=== PATIENT | male | born 1940 | race Caucasian/White ===

== ENCOUNTER 2019-12-29 10:25 | Observation (INO) | payer BC ==
[2019-12-29] MEDS ORDERED: NITROGLYCERIN 0.4 MG 25 EA TAB SL PRN ×2 (10:29→14:18)
[2019-12-29] MEDS ORDERED: ASPIRIN TABLET 325 MG TAB PO ONE (10:29)
--- NOTE | 2019-12-29 10:35 | ED.PDOC ---
History of Present Illness - General Time Seen by Provider: 12/29/19 10:28 Source: patient, Vital Signs reviewed Additional Information: l this is a patient with Hx of sever arthritis that was sent here from clinic due to abnormal ekg patient had inverted t waves in leads III and AVF no chest pain. [patient family stated that he have been short of breath for a year now and the symptoms have gone worse in the past 3 months. patient have never seen a client service professional he quick smoking in 1995 no recent travels and no sick contacts and patient doesn't appear in severe distress at the moment last hospitalization was in July of last year when he was admitted for osteomyelitis - History of Present Illness Allergies/Adverse Reactions: Allergies Aspirin Allergy (Mild, Verified 12/29/19 11:02) Review of Systems - Review of Systems Constitutional: States: no symptoms reported EENTM: States: no symptoms reported Respiratory: States: short of breath Cardiology: States: no symptoms reported Gastrointestinal/Abdominal: States: no symptoms reported Genitourinary: States: no symptoms reported Musculoskeletal: States: no symptoms reported Skin: States: no symptoms reported Neurological: States: no symptoms reported Hematologic/Lymphatic: States: no symptoms reported Family Medical History - Family History Mother Family History: Unknown Physical Exam - Physical Exam General Appearance: Alert, Well Developed, Well Groomed, Well Hydrated, Well Nourished, Other - obese Eyes, Ears, Nose, Throat Exam: PERRL/EOMI, normal ENT inspection, TMs normal, pharynx normal Neck: non-tender, full range of motion, supple Respiratory: chest non-tender, lungs clear, normal breath sounds, no respiratory distress, no accessory muscle use Cardiovascular/Chest: normal peripheral pulses, regular rate, rhythm, no edema, no gallop, no JVD, no murmur, JVD Gastrointestinal/Abdominal: normal bowel sounds, non tender, soft, no organomegaly, no pulsatile mass Extremity: normal range of motion, non-tender, normal inspection, no pedal edema, no calf tenderness Neurologic: lump maker II-XII nml as tested, no motor/sensory deficits, alert, normal mood/affect, oriented x 3 Skin Exam: normal color, warm/dry Progress - Progress Progress: 12/29/19 10:52 patient presenting with sob for the past year. No chest pain patient EKG showed NSR at a rate of 67, no st elevation and no depression and flipped t waves in lead III and AVF and no reciprocal changes will get troponins, BNP, CBC and CMP with Chest x-rays no history of fever, no blood cultures will be ordered 12/29/19 12:20 patient will be admitted here if second troponins are normal - Results/Orders Results/Orders: patient did show evidence of chf with elevated bnp and a troponin of 0.05. I thought of setting an outpatient appointment for him to see the client service professional but instead I discussed with the hospitalist and we decided to keep him in the hospital pending second set of troponins. i did ordered a ct because chest x rays showed Multifocal bilateral patchy airspace disease. Multifocal bilateral pulmonary nodules. Broad differential and neoplastic disease not excluded. Dedicated CT of the thorax recommended. Pulmonary edema that is likely cardiogenic patient doesn't appear in any respiratory distress Departure - Departure Clinical Impression: Congestive heart failure Qualifiers: Heart failure type: unspecified Heart failure chronicity: unspecified Qualified Code(s): I50.9 - Heart failure, unspecified Disposition: Admit Patient Condition: Fair Decision To Admit - Decistion To Admit Decision to Admit Date: 12/29/19 Decision to Admit Time: 12:20
--- NOTE | 2019-12-29 11:18 | RAD ---
EXAM DESCRIPTION: Chest,1 View CLINICAL HISTORY: chest pain w COMPARISON: None FINDINGS: 1 view chest. Multifocal patchy airspace changes are present throughout the right lung and to lesser degree the left upper lung. Several nodular densities are seen projecting within the medial aspect of the left lung and within the right upper lung. Cardiomegaly is present. Vascular pedicle is prominent. Mild cephalization. Mild interstitial curly B lines. Severe degenerative deformities of the bilateral glenohumeral joints. IMPRESSION: Multifocal bilateral patchy airspace disease. Multifocal bilateral pulmonary nodules. Broad differential and neoplastic disease not excluded. Dedicated CT of the thorax recommended. Pulmonary edema that is likely cardiogenic. Electronically signed by: Janusz Coker MD 12/29/2019 11:16 AM NEGATIVE NOTCHER
--- NOTE | 2019-12-29 12:48 | CT ---
EXAM DESCRIPTION: Chest w/Contrast CLINICAL HISTORY: 79 years Male, shortness of breath COMPARISON: Chest x-ray from the same day. TECHNIQUE: Post contrast multidetector CT imaging of the thorax. Multiple reconstructions were generated. This exam was performed according to our departmental dose-optimization program which includes automated exposure control, adjustment of the mA and/or kV according to patient size and/or use of iterative reconstruction technique. FINDINGS: Multiple nodules are present at the lungs bilaterally. Some of these nodules exhibit areas of eccentric calcification. Most of these nodules exhibit spiculated margins. Largest nodule on the right side is within the right lung apex measuring 1.9 x 1.6 cm in the transaxial dimension.s largest on the left is also within the lung apex near the mediastinum where a confluence measures up to 5 cm in AP dimension and up to 1.6 cm in orthogonal axial dimension. Some nodules exhibit areas of low density calcification centrally. These are more prevalent within the left lower lobe. No mediastinal lymphadenopathy is demonstrated. Mild secretions within the trachea. No endobronchial lesions. Emphysematous changes are present. Fibrotic changes noted along the right lower and right middle lobes. No acute consolidative finding. The heart is enlarged. No pericardial effusion is present. No aggressive bone lesions are absent. As noted on the x-ray, there is advanced/severe end-stage osteoarthrosis of the bilateral glenohumeral joints with large joint effusion. IMPRESSION: Multiple mostly solid/soft tissue bilateral pulmonary nodules exhibiting areas of low density calcification. The subtle calcifications favor a benign disease process. However the solid components with spiculated features are concerning for metastatic disease. PET/CT or biopsy recommended. Electronically signed by: Janusz Coker MD 12/29/2019 12:46 PM [facility]
[2019-12-29] MEDS ORDERED: ONDANSETRON INJ 4 MG/2 ML VIAL IV PRN (14:18)
[2019-12-29] MEDS ORDERED: SODIUM CHLORIDE 0.9% (FLUSH) 10 ML SYG IV PRN (14:18)
[2019-12-29] MEDS ORDERED: ACETAMINOPHEN 325 MG TAB PO PRN (14:18)
[2019-12-29] MEDS ORDERED: IV SET AND CAP CHANGE INJ INJ SCH (14:30)
[2019-12-29] MEDS: FUROSEMIDE INJ 40 MG/4 ML VIAL IV SCH (17:50)
[2019-12-29] MEDS ORDERED: ENOXAPARIN SODIUM 40 MG/0.4 ML SYG SUBCU SCH (21:00)
[2019-12-29] MEDS ORDERED: ATORVASTATIN 10 MG TAB PO SCH (21:00)
[2019-12-30] MEDS ORDERED: BENZOCAINE-MENTH LOZ (CEPACOL) 1 EA LOZ MT PRN (04:08)
--- NOTE | 2019-12-30 06:28 | RAD ---
CHEST, TWO VIEW, XR CLINICAL HISTORY: CHF COMPARISON: CT chest 12/29/2019 TECHNIQUE: AP and lateral Chest. FINDINGS: Heart is minimally enlarged. Thoracic aorta is tortuous. There are several scattered bilateral pulmonary nodules. Largest is in the central left lung, 2.1 cm, previously confirmed to be within the left lower lobe. These are compatible with metastatic lesions. There is right pleural thickening. No pneumothorax or pleural fluid. No edema. Lungs are hyperinflated. Normal pulmonary vascularity. Bones appear intact. Unremarkable soft tissues. IMPRESSION: 1. Bilateral pulmonary nodules consistent with known metastatic disease. 2. Right pleural thickening. 3. No evidence of congestive heart failure. Electronically signed by: Eli Cuadra DO 12/30/2019 6:27 AM OUTDOOR GUIDE
[2019-12-30] MEDS: FUROSEMIDE INJ 40 MG/4 ML VIAL IV SCH (08:42)
[2019-12-30] MEDS ORDERED: ASPIRIN (CHEWABLE) 81 MG TAB PO SCH (09:00)
[2019-12-30] MEDS ORDERED: traMADol HCL 50 MG TAB PO PRN (10:00)
[2019-12-30] MEDS ORDERED: NAPROXEN SODIUM 220 MG TAB PO ONE (10:18)
[2019-12-30 10:22] VITALS: BP 114/73; TEMP 97.8; O2SAT 99
--- NOTE | 2019-12-30 10:39 | SSS ---
SUPERVISING PHYSICIAN: Marcial Martinez MD DATE OF ADMISSION 12/29/19 DATE OF DISCHARGE: 12/30/19 DISCHARGE DIAGNOSIS: 1. Shortness of breath with fluid overload, most likely due to underlying cardiopulmonary disease. 2. Congestive heart failure of unknown etiology. His echocardiogram results are pending. Preliminary results show a 25-30% ejection fraction. 3. Multiple spiculated pulmonary nodules concerning for metastatic disease per CT scan. PET/CT or biopsy recommended. 4. Rheumatoid arthritis. HISTORY OF PRESENT ILLNESS: This is an 79-year-old male patient who was seen at [facility] yesterday with severe arthritis and very minimal outpatient medical care. He was sent to the hospital with an abnormal EKG with inverted T- waves in leads III and AVF. There were no complaints of chest pain, but he did have some shortness of breath. The family told the ER that he had been short of breath for almost a year now, but had worsened dramatically in the past three months. He has never seen a home economics expert and, again, he has had poor outpatient medical care. He does see someone for his rheumatoid arthritis as he gets Enbrel. He quit smoking in 1995. He recently moved to [place] from [facility]. In the Emergency Room, his vital signs showed temperature 97.4, heart rate 66, blood pressure 148/77, respiratory rate 22, O2 saturation 99% on room air. Lab studies showed WBC 6.3, hemoglobin 12.1, hematocrit 36.1. Electrolytes are basically within normal limits. Creatinine is elevated at 1.46. His BNP was 396. Initial troponin was 0.05 and followup troponin was 0.04. Chest x-ray showed multifocal bilateral patchy airspace disease, multifocal bilateral pulmonary nodules, broad differential and neoplastic disease is not excluded. Dedicated CT of the thorax recommended. Pulmonary edema that is likely cardiogenic. A CT of the chest was also done and it showed multiple mostly solid soft tissue bilateral pulmonary nodules exhibiting areas of low density calcification. The subtle calcifications favor a benign disease process, however, the solid components with spiculated features are concerning for metastatic disease. PET/CT or biopsy recommended. I was called for admission for observation and possibly new onset of congestive heart failure. History and information received from the patient is very sparse. He is a poor historian. Although he is alert and oriented times 3, he is uncooperative, is very argumentative and will answer few questions. PAST MEDICAL HISTORY: Rheumatoid arthritis. PAST SURGICAL HISTORY: Unknown. OUTPATIENT MEDICATIONS: Enbrel. ALLERGIES: ASPIRIN. SOCIAL HISTORY: He lives in [place]. He recently moved from [place] in [facility]. He does not have a primary care physician although he has seen someone at [facility] recently. He quit smoking in 1995. He denies any ETOH or illicit drug use. REVIEW OF SYSTEMS: Unable to obtain due to the patient's uncooperativeness. PHYSICAL EXAMINATION: VITAL SIGNS: Temperature 98.1. Heart rate 72. Blood pressure 136/78. Respiratory rate 18. O2 saturation 98% on room air. GENERAL: This is an 79-year-old thin male who is lying in his hospital bed. He is in no acute distress. HEENT: Normocephalic, atraumatic. Pupils are equal and reactive. Oropharynx is clear. NECK: Supple without mass. No discernible jugular venous distention. RESPIRATORY: A few scattered crackles throughout all lung clayton, diminished at the bases. GASTROINTESTINAL: Abdomen is soft, nondistended, nontender. Bowel sounds are positive. NEUROLOGIC: Awake, alert and oriented times three although he is argumentative and very uncooperative. LABORATORY: Labs and films are as per history of present illness. HOSPITAL COURSE: The patient was placed in observation. His EKG was monitored. He had no complaints of chest pain. He was given some Lasix and diuresed about 2.5 liters. His echocardiogram was done, but we are awaiting the report. Preliminary unofficial report is about 25-30% ejection fraction. I discussed congestive heart failure with the patient and he was again very uncooperative. He did not want to take Lasix. He did not want to take any additional heart failure medications. He actually said he would not go to any followup appointments. His vital signs have been stable. I have stressed the importance of him following up with someone after his discharge. His AM chest x-ray shows 1) Bilateral pulmonary nodules consistent with known metastatic disease. 2) Right pleural thickening. 3) No evidence of congestive heart failure. DISCHARGE PLAN: The patient will be discharged home in stable condition. He has refused any Lasix. He has refused an PREET inhibitor. He has refused a beta mandeep. He says he will only take his Enbrel and pain medications such as Aleve. I have set up a followup appointment with Rhys Teresa on 01/04/20 at 10 AM. At that time, hopefully the echocardiogram will be completed. It is recommended that the patient be given some Lasix, a small dose of a beta mandeep and a small dose of an PREET inhibitor. At that appointment, he may need followup with cardiology as well as getting a PET scan or biopsy of the pulmonary nodule as recommended in the CT scan. I have instructed the patient to followup with [facility] or come to the hospital for any problems or complications. DISCHARGE MEDICATIONS: 1. Enbrel. 2. Lipitor. #[id number] MTDD
[2020-01-05] MEDS ORDERED: NON-FORMULARY MEDICATION 1 EA MIS (Etanercept [Enbrel] 50 MG) IM SCH (09:00)
== END 2019-12-30 12:05 | disposition home or self-care (01) ==
LOC: ER 10:25 → MS 13:41
PROVIDERS: ADMIT Family Medicine; ATTEND Nurse Practitioner Acute Care
DX: I50.9 Heart failure, unspecified (principal); R91.8 Other nonspecific abnormal finding of lung field; M06.9 Rheumatoid arthritis, unspecified; M19.90 Unspecified osteoarthritis, unspecified site; Z79.1 Long term (current) use of non-steroidal anti-inflammatories (NSAID); Z88.6 Allergy status to analgesic agent; Z87.891 Personal history of nicotine dependence
CPT/HCPCS: 96374; 96376; 96372; J1940 ×2; J1650; 80053; 36415; 85025; 84484 ×2; 83880; 71045; 71046; 71260; 94760 ×2; 99285; 93306; 93005

== ENCOUNTER 2020-03-01 17:08 | Emergency (ER) | payer BC ==
[2020-03-01] MEDS: SODIUM CHLORIDE 0.9% 1000ML 1,000 ML IVS ONE (18:16)
[2020-03-01] MEDS ORDERED: MORPHINE SULFATE INJ 10 MG/ML VIAL ONE (18:17)
[2020-03-01] MEDS: MORPHINE SULFATE INJ 10 MG/ML VIAL IV ONE ×2 (18:20→18:35)
--- NOTE | 2020-03-01 19:04 | CT ---
EXAM DESCRIPTION: Abdoment/Pelvis w/o Contrast CLINICAL HISTORY: 79 years Male fall, ams , hypotension COMPARISON: None TECHNIQUE: Images were obtained in axial, sagittal, and coronal planes. No intravenous contrast was administered. This exam was performed according to our departmental dose-optimization program which includes use of Automated Exposure Control, adjustment of the mA and/or kV according to patient size and/or use of iterative reconstruction technique. FINDINGS: No abnormality involving the liver, spleen, pancreas, gallbladder, or adrenal glands bilaterally. No obstructing renal calcifications bilaterally. No hydronephrosis bilaterally. Incompletely distended bladder. Appendix not well identified however no secondary signs for appendicitis. No bowel obstruction, perforation, or inflammation. Marked constipation. Tortuosity descending aorta. Distal thoracic aorta measures 3.7 cm in greatest anterior posterior dimension. Mild dilatation infrarenal abdominal aorta. Mid abdominal aorta measures 3.1 cm in transverse dimension and 2.9 cm in anterior posterior dimension. Distal abdominal aorta measures 2.8 cm in transverse dimension and 2.9 cm in anterior posterior dimension. Marked calcification thoracic and abdominal aorta. Patchy airspace opacities lower lobes bilaterally. Superimposed chronic change. No acute osseous abnormality. Intervertebral disc space narrowing L4-5 and L5-S1 levels. Marked intervertebral disc space narrowing with dorsal kyphosis lower thoracic spine. Broad-based protrusion L4-5 osteophyte disc complex with associated spondylitic change and moderate narrowing of spinal canal. IMPRESSION: No acute intra-abdominal abnormality. Mild dilatation infrarenal abdominal aorta. Three year follow-up imaging study suggested to further confirm stability. Electronically signed by: Britt Mtz MD 03/01/2020 7:02 PM CDT
--- NOTE | 2020-03-01 19:12 | CT ---
EXAM DESCRIPTION: Chest w/o Contrast CLINICAL HISTORY: 79 years Male fall, ams , hypotension COMPARISON: None TECHNIQUE: Images were obtained in axial, sagittal, and coronal planes. No intravenous contrast was administered. This exam was performed according to our departmental dose-optimization program which includes use of Automated Exposure Control, adjustment of the mA and/or kV according to patient size and/or use of iterative reconstruction technique. FINDINGS: Aortic root is dilated measuring 4.1 cm in anterior posterior dimension. Enlarged heart. Small pericardial effusion. No pleural effusions bilaterally. No pneumothorax. Multiple noncalcified nodular lesions lung clayton bilaterally. These findings are suspicious for metastatic disease. The largest on the right is seen involving the right upper lobe measuring 1.5 cm. Confluent nodules left suprahilar region measuring 4.7 cm in anterior posterior dimension. Multiple additional smaller nodules seen. Airspace attenuation peripheral right lower lobe system with infiltrate and atelectatic change. No acute osseous abnormality. Marked intervertebral disc space narrowing lower thoracic spine with fusion T9-T10 and T10-11 levels. Associated marked degenerative change. No sternal fracture. 3 cm infrarenal abdominal aortic aneurysm. Three year follow-up imaging suggested. IMPRESSION: Multiple noncalcified nodules lung clayton bilaterally likely metastatic disease. Dilated aortic root. Minimal infiltrate versus atelectatic change right lower lobe. No acute intrathoracic abnormality otherwise noted. Electronically signed by: Britt Mtz MD 03/01/2020 7:11 PM CDT
--- NOTE | 2020-03-01 19:20 | CT ---
PROCEDURE: CT Head Without Intravenous Contrast CLINICAL INDICATION: The patient is 79 years years old, Male; fall, ams , hypotension TECHNIQUE: Axial computed tomography images of the head/brain without intravenous contrast. Sagittal and coronal reformatted images were created and reviewed. This CT exam was performed using one or more of the following dose reduction techniques: automated exposure control, adjustment of the mA and/or kV according to patient size, and/or use of iterative reconstruction technique. COMPARISON: No relevant prior studies available. FINDINGS: BRAIN: No intracerebral or extracerebral mass lesions are identified. There is patchy hypodensity of the cerebral white matter which is nonspecific but likely secondary to chronic microvascular ischemic changes in end vessel distributions. There is a small focus of decreased density and volume loss in the left frontoparietal region, consistent with encephalomalacia from remote infarct or other insult. Shoemaker/white matter distinction is maintained. There is no evidence of intracranial hemorrhage. There is no evidence of acute territorial infarct. (It should be noted that acute infarct may not be discernible in the first [address] ) MIDLINE SHIFT: There is no shift of the midline structures. VENTRICLES: There is prominence of the ventricles, sulci, cerebellar folia, and basilar cisterns consistent with volume loss. BONES/JOINTS: There is no acute calvarial abnormality or other discernible acute osseous abnormalities. SOFT TISSUES: Unremarkable. VASCULATURE: There is atherosclerotic calcification in the siphons of the bilateral internal carotid and dominant left vertebral arteries. SINUSES: The visualized paranasal sinuses are clear with the exception of mild focal mucoperiosteal thickening in the left maxillary sinus. There is a small left alfreda bullosa which can be seen with chronic rhinitis. MASTOID AIR CELLS: The mastoids and middle ears are clear. ORBITS: There are senescent changes in the right orbit. DENTAL: The maxilla and mandible are edentulous. IMPRESSION: 1. No acute intracranial abnormality. (It should be noted that acute infarct may not be discernible in the first [address]) a follow-up head ct or mri is recommended if neurologic symptoms persist. 2. Volume loss. 3. Nonspecific white matter lucency, most likely deep white matter ischemic changes. Demyelination and gliosis also in the differential. 4. ASVD. 5. There is a small focus of decreased density and volume loss in the left frontoparietal region, consistent with encephalomalacia from remote infarct or other insult. 6. Remainder of findings as discussed above. Electronically signed by: Drea Simmons MD 03/01/2020 7:18 PM CDT
--- NOTE | 2020-03-01 19:23 | CT ---
EXAM DESCRIPTION: Cervical Spine CLINICAL HISTORY: 79 years Male fall, ams , hypotension COMPARISON: None TECHNIQUE: Images were obtained in axial, sagittal, and coronal planes. This exam was performed according to our departmental dose-optimization program which includes use of Automated Exposure Control, adjustment of the mA and/or kV according to patient size and/or use of iterative reconstruction technique. FINDINGS: Height of the vertebral bodies is intact. Erosive change inferior C7 vertebral body. Additional erosive changes vertebral endplates C5-6. Anterior fusion C3-4. 3 mm anterior subluxation C3 with relationship to C4. 5 mm anterior subluxation C7 with relationship to T1 likely degenerative in nature. Retrolisthesis C6 with relationship to C7. Additional intervertebral disc space narrowing C4-5, C5-6, C6-7 levels. Marked anterior osteophyte formation. Intact odontoid and predental space. Vertebral soft tissues appear normal. Intact ring C1. Posterior elements intact all levels. Intact occipital condyles. Marginal spur formation with neural foraminal narrowing bilaterally all levels. Multilevel disc bulging with multilevel narrowing of spinal canal. Noncalcified nodules upper lobes bilaterally consistent with metastatic disease. IMPRESSION: No acute fracture seen. Marked multilevel osteoarthritic change with anterior fusion C3-4 as well as multilevel subluxations likely degenerative in nature. Multiple noncalcified nodular lesions upper lungs bilaterally consistent with metastatic disease. Degenerative change versus metastatic disease inferior C7 vertebral body. Electronically signed by: Britt Mtz MD 03/01/2020 7:21 PM CDT
[2020-03-01] MEDS ORDERED: MAGNESIUM SULFATE PREMIX 2GM 50 ML IVPB ONE (19:42)
[2020-03-01] MEDS ORDERED: SODIUM CHL 0.9% 50ML MIN-BAG+ 50 ML IVPB ONE (19:42)
[2020-03-01] MEDS ORDERED: cefTRIAXone SODIUM 1 GM VIAL ONE (19:42)
[2020-03-01] MEDS: cefTRIAXone SODIUM 1 GM in SODIUM CHL 0.9% 50ML MIN-BAG+ 50 ML IVPB ONE (19:43)
[2020-03-01] MEDS: MAGNESIUM SULFATE PREMIX 2GM 2 GM in PREMIX BAG 1 BAG IVPB ONE (19:43)
--- NOTE | 2020-03-01 20:55 | ED.PDOC ---
History of Present Illness - General Chief Complaint: Trauma Stated Complaint: Fall Time Seen by Provider: 03/01/20 17:09 Source: patient, family Exam Limitations: clinical condition - History of Present Illness Initial Comments: The patient is a 79-year-old male presents emergency room secondary to what is reportedly upper back pain. Apparently the patient has had upper back pain this afternoon. When family called to check on him again he did not answer so family member went over and found him on the floor in the bathroom. Upon arrival here he is complaining of upper back pain between his shoulder blades. No pain with palpation and no pain with movement. The patient's blood pressure upon arrival was in the 70s over 30s. He was significantly confused and pale. He is not reporting any chest pain. No shortness of breath. 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 He does not formally have a DNR. Family is present but knows relatively little information. The patient apparently had a pacemaker defibrillator placed a month ago in [place]. He has had a stroke in the past. He does take an immunosuppressant. It is unknown whether he passed out. It is unknown what his blood pressures normally are but he does take a blood pressure medicine and a diuretic. EKG shows primarily ventricularly paced rhythm however the few escape [place] beats do not show any ST segment elevation.. Timing/Duration: unsure Severity: severe Improving Factors: medication Worsening Factors: nothing Associated Symptoms: malaise Allergies/Adverse Reactions: Allergies Aspirin Allergy (Mild, Verified 03/01/20 17:19) Home Medications: Ambulatory Orders Atorvastatin Calcium [Lipitor] 10 mg PO BEDTIME 12/29/19 Etanercept [Enbrel] 50 mg IM [facility]LY 12/29/19 Furosemide [Lasix] 20 mg PO DAILY #30 tab 12/30/19 Review of Systems - Review of Systems Constitutional: States: malaise, weakness - Generalized EENTM: States: no symptoms reported Respiratory: States: no symptoms reported Cardiology: States: syncope - Possibly Gastrointestinal/Abdominal: States: no symptoms reported Genitourinary: States: no symptoms reported Musculoskeletal: States: back pain Skin: States: no symptoms reported Neurological: States: other - Confusion initially that does clear with improvement of the blood pressure Endocrine: States: no symptoms reported All other Systems: No Change from Baseline Past Medical History (General) - Patient Medical History Hx Seizures: No Hx Stroke: No Hx Asthma: No Hx of COPD: No Hx Congestive Heart Failure: Yes Hx Pacemaker: No Hx Hypertension: No Hx Diabetes: No Hx Cancer: No Hx Hepatitis C: No Hx MRSA: No - Vaccination History Hx Tetanus, Diphtheria Vaccination: No Hx Influenza Vaccination: No Hx Pneumococcal Vaccination: No - Social History Hx Tobacco Use: Yes - DIPS OCC Hx Alcohol Use: No Hx Substance Use: No Hx Substance Use Treatment: No Hx Depression: No Hx Physical Abuse: No Hx Emotional Abuse: No - Activities of Daily Living Hospice Agency (if applicable):: None - Female History Patient is a Female of Child Bearing Age (10 -59 yrs old): No - Triage Comment ED Triage Comment: pt feeling weak, passed out in bathroom and too weak to get off the floor. pt intermittent confusion, appears pale, weak, and tired. requires 2 staff for transfer to stretcher in ER. Family Medical History - Family History Mother Family History: Unknown Physical Exam - Physical Exam General Appearance: Frail, Lethargic - Drowsy and mildly confused., Ill Appearing Eye Exam: bilateral normal Ears, Nose, Throat: hearing grossly normal, normal pharynx Neck: non-tender, supple Respiratory: lungs clear, normal breath sounds, no respiratory distress, no accessory muscle use Cardiovascular/Chest: normal peripheral pulses, no edema, other - Regular rate but paced Peripheral Pulses: radial,right: 2+, radial,left: 2+ Gastrointestinal/Abdominal: non tender, soft Rectal Exam: deferred Back Exam: normal inspection, no CVA tenderness, no vertebral tenderness, other - Back pain is not reproducible with movement or palpation Extremity: normal range of motion - Chronic foot deformities, non-tender, no pedal edema, no calf tenderness, normal capillary refill Neurologic: street sprinkler II-XII nml as tested, other - The patient is initially drowsy and confused. Skin Exam: pallor Comments: Vital Signs - 24 hr 03/01/20 03/01/20 03/01/20 17:10 17:32 18:09 Temperature 99.1 F 99.1 F Pulse Rate [ 95 H 91 H 97 H brachial] Respiratory 18 22 22 Rate Blood Pressure 95/55 90/54 [Left Arm] O2 Sat by Pulse 98 97 Oximetry 03/01/20 03/01/20 03/01/20 18:23 19:00 19:37 Temperature 99.8 F H Pulse Rate [ 85 83 82 brachial] Respiratory 18 14 18 Rate Blood Pressure 93/56 96/62 100/52 [Left Arm] O2 Sat by Pulse 99 94 L 99 Oximetry 03/01/20 20:00 Temperature Pulse Rate [ 78 brachial] Respiratory 14 Rate Blood Pressure 103/62 [Left Arm] O2 Sat by Pulse 99 Oximetry Progress - Progress Progress: 03/01/20 20:57 The patient is an 79-year-old male presented emergency room with altered mental status and hypotension reporting upper back pain. The patient is in acute renal failure and has a markedly elevated BNP, markedly elevated d- dimer and mildly elevated troponin. Is uncertain how long the patient has been hypotensive. He did respond nicely to a liter of IV fluids bring the systolic blood pressure up to 100s. Back pain has remained. He has received several doses of morphine for this. I am not certain if the back pain is from trauma, aortic pathology or a myocardial infarction. The patient is not receiving blood thinners in case this is from an aortic pathology. Family does understand that he is not a candidate for any aortic surgery. The patient is being transferred for cardiology evaluation. He has not received IV contrast here secondary to acute renal failure. He is being sent for the possibility of coronary and aortic angiography for delineation of what ever pathology is there and what ever intervention is appropriate for him. He also has a right lower lobe infiltrate i.e. a small pneumonia. He has received a dose of Rocephin for this. The patient is being transferred for specialty care and higher level of care. Acceptance is appreciated. The patient is mentating much better with improved vital signs. Morphine will be continued as needed to control pain for now. Critical care time spent for hypotension and arrangement for further care is 45 minutes. ai milton [id number] 03/01/20 21:01 - Results/Orders Results/Orders: EKGs mainly show a ventricularly paced rhythm. Occasional [place] beats show no evidence of any ST segment elevation. Paced rate was around [address] scan of the chest shows dilated aortic root at 4.1 cm along with a small pericardial effusion and cardiomegaly. There are multiple metastases to lung [place] and a right lower lobe infiltrate. There is a 3 cm infrarenal abdominal aortic aneurysm. CT scan of the abdomen and pelvis shows constipation and a 3.7 cm distal thoracic aorta. CT scan of the head shows previous infarction but no acute abnormalities otherwise. 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 This does not appear to be the place where he is hurting. See reports for details. Laboratory Tests 03/01/20 03/01/20 03/01/20 17:53 17:53 17:53 WBC 15.3 H RBC 3.42 L Hgb 10.5 L Hct 31.4 L MCV 92.0 MCH 30.8 MCHC 33.5 RDW 14.5 Plt Count 110 L MPV 9.0 Absolute Neuts (auto) 13.80 H Absolute Lymphs (auto) 0.30 L Absolute Monos (auto) 1.20 H Absolute Eos (auto) 0.00 Absolute Basos (auto) 0.10 Neutrophils % 89.7 H Lymphocytes % 1.7 L Monocytes % 8.0 Eosinophils % 0.1 L Basophils % 0.5 PT INR PTT (SP) D-Dimer, Quantitative Sodium 136 Potassium 4.2 Chloride 106 Carbon Dioxide 20 L Anion Gap 14.2 BUN 30 H Creatinine 1.98 H BUN/Creatinine Ratio 15.2 Random Glucose 98 Serum Osmolality 278.1 Lactic Acid Calcium 9.0 Magnesium 1.4 L Total Bilirubin 0.9 AST 42 ALT 16 Alkaline Phosphatase 55 Creatine Kinase 2009 H* CK-MB (CK-2) 16.2 H* CK-MB (CK-2) % 0.81 Troponin I 0.16 H* B-Natriuretic Peptide 1180.0 H* Serum Total Protein 6.0 L Albumin 2.7 L Globulin 3.3 Albumin/Globulin Ratio 0.8 L Amylase 55 Lipase 36 03/01/20 03/01/20 17:53 17:53 WBC RBC Hgb Hct MCV MCH MCHC RDW Plt Count MPV Absolute Neuts (auto) Absolute Lymphs (auto) Absolute Monos (auto) Absolute Eos (auto) Absolute Basos (auto) Neutrophils % Lymphocytes % Monocytes % Eosinophils % Basophils % PT 11.6 H INR 1.17 H PTT (SP) 29.2 D-Dimer, Quantitative > 5000 H* Sodium Potassium Chloride Carbon Dioxide Anion Gap BUN Creatinine BUN/Creatinine Ratio Random Glucose Serum Osmolality Lactic Acid 5.0 H* Calcium Magnesium Total Bilirubin AST ALT Alkaline Phosphatase Creatine Kinase CK-MB (CK-2) CK-MB (CK-2) % Troponin I B-Natriuretic Peptide Serum Total Protein Albumin Globulin Albumin/Globulin Ratio Amylase Lipase Departure - Departure Clinical Impression: Non-ST elevation myocardial infarction (NSTEMI) Hypotension Qualifiers: Hypotension type: unspecified hypotension type Qualified Code(s): I95.9 - Hypotension, unspecified Back pain Qualifiers: Back pain location: thoracic back pain Chronicity: acute Back pain laterality: midline Qualified Code(s): M54.6 - Pain in thoracic spine Aortic aneurysm Qualifiers: Aortic location: thoracic aorta Presence of rupture: without rupture Qualified Code(s): I71.2 - Thoracic aortic aneurysm, without rupture Right lower lobe pneumonia Qualifiers: Pneumonia type: due to unspecified organism Qualified Code(s): J18.9 - Pneumonia, unspecified organism Disposition: Transfer to Hospital Departure Forms: ED Discharge - Pt. Copy, Patient Portal Self Enrollment Referrals: LAURIE JIMENEZ NP [Primary Care Provider] - 1-2 Weeks Home Medications: Ambulatory Orders Atorvastatin Calcium [Lipitor] 10 mg PO BEDTIME 12/29/19 Etanercept [Enbrel] 50 mg IM [facility] 12/29/19 Furosemide [Lasix] 20 mg PO DAILY #30 tab 12/30/19 Transfer to Outside Facility - Transfer Information Decision to Transfer Date: 03/01/20 Decision to Transfer Time: 21:03 Reason for Transfer: required specialist not available Accepting Provider:: dr alvarado Accepting Facility: [facility]
[2020-03-01 21:09] VITALS: BP 110/62; TEMP 98; O2SAT 98
== END 2020-03-01 21:26 | disposition short-term general hospital (02) ==
LOC: ER 17:08
DX: I21.4 Non-ST elevation (NSTEMI) myocardial infarction (principal); I95.9 Hypotension, unspecified; R53.1 Weakness; R41.82 Altered mental status, unspecified; J18.9 Pneumonia, unspecified organism; I71.2 Thoracic aortic aneurysm, without rupture; M54.6 Pain in thoracic spine; K59.00 Constipation, unspecified; I50.9 Heart failure, unspecified; F17.220 Nicotine dependence, chewing tobacco, uncomplicated; Z86.73 Personal history of transient ischemic attack (TIA), and cerebral infarction without residual deficits; Z95.0 Presence of cardiac pacemaker
CPT/HCPCS: 36415; 70450; 71250; 72125; 74176; 80053; 82150; 82550; 82553; 83605; 83690; 83735; 83880; 84484; 85025; 85379; 85610; 85730; 87040; 87077; 87186; 93005; J0696; J2270; J3475; J7030; J7050